=== PATIENT | female | born 1995 | race African-American/Black ===

== ENCOUNTER → 2020-03-31 | Emergency (ER) | payer SELFPAY ==
[~2020-03-31] VITALS: Ht 154.9 cm; Wt 63.5 kg
[~2020-03-31] MED LIST: AUGMENTIN 875-1 EAC1 ORAL; TYLENOL EXTRA500 MG ORAL
--- NOTE | 2020-03-31 13:05 | NUR ---
ED Nurse Note: Pt ambulated in to ED c/o right middle finger pain and yellowish abcess x couple days, unk cause. Pt is AOx4, calm and cooperative, VSS on RA,.
[2020-03-31 13:20] VITALS: BP 106/67
--- NOTE | 2020-03-31 13:21 | Emergency Room Report ---
History of Present Illness General Chief Complaint: Upper Extremity Injury Source: Patient Present Illness HPI 24-year-old female with no significant past medical history here complaining pain and swelling in the right middle finger x3 days. No pus drainage noted. Denies any fever and chills, tingling numbness. Patient has full range of motion of the affected side. Minimal pus drainage noted. Has not taken medication for symptom relief. Denies any trauma. Reports that it started after she cut her cuticles. No abscess noted. Patient reports that she is currently breast-feeding. Denies . Allergies: Coded Allergies: No Known Allergies (Unverified , 03/31/20) COVID-19 Screening Contact w/high risk pt: No Experienced COVID-19 symptoms?: No COVID-19 Testing performed IMPORT/EXPORT FREIGHT FORWARDER: No Patient History Past Medical History: see triage record Past Surgical History: none Pertinent Family History: none Last Menstrual Period: 03/08/20 Now: No Immunizations: UTD Reviewed Nursing Documentation: PMH: Agreed; PSxH: Agreed Nursing Documentation-PMH Past Medical History: No Stated History Review of Systems All Other Systems: negative except mentioned in HPI Physical Exam Vital Signs Date Time Temp Pulse Resp B/P (MAP) Pulse Ox O2 Delivery O2 Flow Rate FiO2 03/31/20 13:12 98.1 71 19 106/67 (80) 98 Room Air Sp02 EP Interpretation: reviewed, normal General Appearance: no apparent distress, alert, GCS 15, non-toxic Head: normocephalic, atraumatic Eyes: bilateral eye normal inspection, bilateral eye PERRL ENT: hearing grossly normal, normal pharynx, no angioedema, normal voice Neck: full range of motion, supple/symm/no masses Respiratory: chest non-tender, lungs clear, normal breath sounds, no rhonchi, no respiratory distress, no retraction, speaking full sentences Cardiovascular #1: regular rate, rhythm, no edema, no murmur Cardiovascular #2: 2+ radial (R), 2+ radial (L) Gastrointestinal: soft Genitourinary: no CVA tenderness Musculoskeletal: back normal, swelling - Right middle finger-medial side Neurologic: alert, motor strength/tone normal, oriented x3, sensory intact, responsive, speech normal Psychiatric: judgement/insight normal, memory normal, mood/affect normal, no suicidal/homicidal ideation Skin: other - Paronychia right middle finger Lymphatic: no adenopathy Medical Decision Making PA Attestation Diagnosis and treatment plans were reviewed and discussed with my supervising physician Dr. Cohen Diagnostic Impression: Primary Impression: Paronychia ER Course 24-year-old female with no significant past medical history here complaining pain and swelling in the right middle finger x3 days. No pus drainage noted. Denies any fever and chills, tingling numbness. Patient has full range of motion of the affected side. Minimal pus drainage noted. Has not taken medication for symptom relief. Denies any trauma. Reports that it started after she cut her cuticles. No abscess noted. Patient reports that she is currently breast-feeding. Denies . Ddx considered but are not limited to : Cellulitis, paronychia, superficial infection, abscess Vital signs: are WNL, pt. is afebrile H&PE are most consistent with: Paronychia ORDERS: Augmentin ED INTERVENTIONS: None required at this time. DISCHARGE: At this time pt. is stable for d/c to home. Will provide printed patient care instructions, and any necessary prescriptions. Care plan and follow up instructions have been discussed with the patient prior to discharge. At this time needed if still has no turn into abscess. Patient to follow primary doctor, take medication as directed, cover the wound when handling her baby however take the bandage off when he is not doing any activities. If worsening symptoms return to the emergency room Last Vital Signs Date Time Temp Pulse Resp B/P (MAP) Pulse Ox O2 Delivery O2 Flow Rate FiO2 03/31/20 13:12 98.1 71 19 106/67 (80) 98 Room Air Disposition: HOME, SELF-CARE Condition: Stable Scripts Amoxicillin/Potassium Clav 875-125* (AUGMENTIN 875-125 TABLET*) 1 Each Tablet 1 TAB ORAL TWICE A DAY for 7 Days, #14 TAB Prov: Benjamin Portillo 03/31/20 Patient Instructions: Paronychia, [id number] Additional Instructions: Take medication as directed, follow-up with your primary care provider, if worsening symptom return to the emergency room Benjamin Portillo Mar 31, 2020 13:21
[2020-03-31 13:25] VITALS: BP 110/70
--- NOTE | 2020-03-31 13:25 | NUR ---
ER DISCHARGE NOTE: Patient is cleared to be discharged per ERPA, pt is aox4, on room air, with stable vital signs. pt was given dc and prescription instructions, pt was able to verbalize understanding, pt id band removed. pt is able to ambulate with steady gait. pt took all belongings.
== END | disposition home or self-care (01) ==
LOC: EMR 13:20
DX: L03.011 Cellulitis of right finger (principal)
CPT/HCPCS: 99282

== ENCOUNTER 2020-04-04 10:50 | Emergency (ER) | payer SELFPAY ==
[~2020-04-04] VITALS: Ht 154.9 cm; Wt 63.5 kg
[~2020-04-04 10:50] MED LIST changes: -TYLENOL EXTRA500 MG ORAL
--- NOTE | 2020-04-04 11:01 | NUR ---
ED Nurse Note: pt presents to ED with R middle finger swelling. pt states that she was seen and treated here 4 days ago and prescribed amoxicillin but that the swelling has gotten worse. pt's R middle finger appears to be swollen with a small pocket of yellow pus near the nail bed. skin appears to be intact, pt denies fevers/chills at this time.
[2020-04-04 11:03] VITALS: BP 109/71
[2020-04-04] MEDS ORDERED: Lidocaine 1% Plain 30 ml INJ ONE (11:15)
[2020-04-04] MEDS ORDERED: Bacitracin Oint UD TOPIC ONE ×2 (11:20→11:30)
--- NOTE | 2020-04-04 11:20 | Emergency Room Report ---
History of Present Illness General Chief Complaint: Skin Rash/Abscess Source: Patient Present Illness HPI 24-year-old -Irish female [id number] presents with paronychia to the distal right middle finger. Patient was previously seen in the emergency department and prescribed Augmentin. Her symptoms are worsening with increased pain and swelling. She denies any fevers, chills, nausea, vomiting, diarrhea, pain with passive extension of the joint or inability to flex the different joints of her middle finger. She states that her last menstrual period was 2 weeks ago. Tetanus status is up-to-date. The patient's symptoms were gradual onset, severity was moderate, duration since 3 days. Quality: Aching Past medical history: Denies Past surgical history: Denies Smoking: Denies Alcohol use: Denies Drug use: Denies Review of systems: CONST: No fevers or chills, No night sweats PULMONARY: No productive cough, No shortness of breath CARDIAC: No chest pain, No palpitations GI: No vomiting, No diarrhea , No melena_or_BRBPR : No dysuria, No hematuria, No discharge NEURO: No new_focal_weakness_or_numbness, No confusion, No vision changes 14 point Review of Systems is otherwise negative except per HPI Physical Exam: GENERAL: Awake_alert_ nontoxic, no acute distress Spo2 98% on RA -normal EYES: Extraocular muscles are intact. Conjunctivae clear. Lids without swelling ENT: External nose and ear normal_in_appearance. Oropharynx clear. Head_atraumatic, Moist_oral_mucosa NECK: No JVD. No meningismus. No thyromegaly. Supple. Trachea midline RESP: Normal respiratory effort. Symmetric rise. No stridor. Clear_to_auscultation_No_rales_No_wheezes CARDIAC: Regular rate and regular rhytm. No_significant pedal edema. ABDOMEN: Soft. Nondistended. Nontender_No_rebound_or_guarding. MSK: Normal muscle tone, without rigidity. Extremities without asymmetric deformity or swelling. Right hand: middle finger paronychia at the lateral nail fold with large area of blanching and fluctuance. No surrounding cellulitis or palpable crepitus. Intact flexion/extension at right third MCP, PIP, and DIP joint SKIN: Warm and dry. See above NEUROLOGIC: Alert, oriented x3. Motor_and_sensation_grossly_intact. No truncal ataxia. Gait_normal Psych: Normal mood and affect, normal judgment and insight - COORDINATION OF CARE Case was discussed with: Patient Medical Decision Making/Plan: Abscess Incision and Drainage with irrigation by me: Indication: Right middle finger paronychia Location: R middle finger Anesthesia: Local 1% Lidocaine digital block w 3cc Technique: Irrigated. Disrupted loculations w/ instrumentation Packing: None Complications: Neurovascularly intact post procedure Tolerated procedure well. No complications. Differential diagnosis: Abscess versus paronychia versus felon versus herpetic flynn [id number] female presents with right middle finger paronychia. Tdap is UTD. There are no clinical signs of flexor tenosynovitis. Simple abscess incision and drainage was performed at bedside with retrieval of approximately 1 cc of purulent material. Patient tolerated procedure well without complications. Patient was neurovascularly intact post procedure. Will have patient continue warm soaks at home to prevent reaccumulation. She has 3 days remaining of Augmentin. Recommend wound check in 2 days. Strict return ER precautions were discussed Allergies: Coded Allergies: No Known Allergies (Unverified , 03/31/20) COVID-19 Screening Contact w/high risk pt: No Experienced COVID-19 symptoms?: No COVID-19 Testing performed MOTOR PATROL OPERATOR: No Patient History Last Menstrual Period: 03/08/20 Now: No Nursing Documentation-[facility] Past Medical History: No Stated History Physical Exam Vital Signs Date Time Temp Pulse Resp B/P (MAP) Pulse Ox O2 Delivery O2 Flow Rate FiO2 04/04/20 10:56 97.9 76 18 109/71 (84) 95 Room Air Sp02 EP Interpretation: reviewed, normal Medical Decision Making Diagnostic Impression: Primary Impression: Paronychia EKG Diagnostic Results Troponin ordered: No Reevaluation Time: 11:20 Last Vital Signs Date Time Temp Pulse Resp B/P (MAP) Pulse Ox O2 Delivery O2 Flow Rate FiO2 04/04/20 11:03 97.9 86 18 109/71 95 Room Air Status: improved Disposition: HOME, SELF-CARE Admit Decision Time: 11:20 Condition: Stable Scripts Acetaminophen* (TYLENOL EXTRA STRENGTH*) 500 Mg Tablet 500 MG ORAL Q8H PRN for Prn Headache/Temp > 101, #30 TAB 0 Refills Prov: Dominique Baez D.O. 04/04/20 Amoxicillin/Potassium Clav 875-125* (AUGMENTIN 875-125 TABLET*) 1 Each Tablet 1 TAB ORAL TWICE A DAY for 5 Days, #10 TAB Prov: Dominique Baez D.O. 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 Warm soaks to middle finger to prevent re-accumulation Follow-up with your doctor sooner if your condition requires a more timely clinical reevaluation. Return to the emergency department immediately if you feel that your condition is worsening or if you have any new or concerning symptoms. Review your discharge instructions and take any prescriptions given as instructed. [facility] PROVIDES FREE OR LOW-COST HEALTH SERVICES TO PEOPLE WHO CAN SHOW PROOF THAT THEY LIVE IN [facility]. TO FIND MORE CLINICS PARTNERED WITH [facility] TO PROVIDE SERVICE, PLEASE CALL . Dominique Baez D.O. Apr 04, 2020 11:20
[2020-04-04] MEDS ORDERED: TYLENOL EXTRA500 MG ORAL (11:21)
[2020-04-04] MEDS ORDERED: AUGMENTIN 875-1 EAC1 ORAL (11:21)
[2020-04-04 11:25] VITALS: BP 109/71
--- NOTE | 2020-04-04 11:25 | NUR ---
ER DISCHARGE NOTE: Patient is cleared to be discharged per ERMD, pt is aox4, on room air, with stable vital signs. R finger wound was cleaned and dressed per ERMD orders. pt was given dc and prescription instructions, pt was able to verbalize understanding, pt id band removed without complications. pt is able to ambulate with steady gait. pt took all belongings.
== END 2020-04-04 11:25 | disposition home or self-care (01) ==
LOC: EMR 10:59
DX: L03.011 Cellulitis of right finger (principal)
CPT/HCPCS: 99283